=== PATIENT | female | born 1985 ===

== ENCOUNTER 2020-08-16 08:59 | Outpatient (REF) | payer OTHER, SELFPAY ==
[2020-08-16 11:29] LABS: MANUAL DIFF FLAG NO
[2020-08-16 11:39] LABS: Basophils Percent Auto 0.3 % (0-2); Eosinophils Absolute Auto 0.2 X10*3/uL (0.0-0.4); Eosinophils Percent Auto 2.4 % (0-4); Hemoglobin 13.8 g/dl (12.0-16.0); Imm Gran Abs Auto 0.08 X10*3/uL (0.00-0.03); Imm Gran Pct Auto 0.9 % (0.0-0.4); Lymphocytes Absolute Auto 1.8 X10*3/uL (1.2-4.9); Lymphocytes Percent Auto 20.5 % (20-40); Mean Corpuscular HGB Conc 33.7 g/dl (31.0-35.0); Mean Corpuscular Hemoglobin 31.9 pg (27.0-33.0); Mean Corpuscular Volume 94.9 fL (80-98); Mean Platelet Volume 12.1 fL (9.4-12.3); Monocytes Absolute Auto 0.5 X10*3/uL (0.1-1.2); Monocytes Percent Auto 5.3 % (2-11); Neutrophils Absolute Auto 6.3 X10*3/uL (2.0-8.3); Neutrophils Percent Auto 70.6 % (45-73); Platelet Count 240 X10*3/uL (160-400); Red Blood Count 4.32 X10*6/uL (4.20-5.50); White Blood Count 8.9 X10*3/uL (4.8-10.8)
[2020-08-16 11:55] LABS: Anion Gap 12 (12-20); Blood Urea Nitrogen 10 mg/dL (9-16); Calcium 9.3 mg/dL (8.4-10.2); Carbon Dioxide 28 mmol/L (22-29); Chloride 101 mmol/L (96-108); Cholesterol 184 mg/dL; Estimated Glomerular Filt Rate > 60; Glucose Fasting 84 mg/dL (60-99); HDL Cholesterol 34 mg/dL; LDL Cholesterol Calculated 105 mg/dl; Potassium 4.1 mmol/l (3.3-5.1); Sodium 137 mmol/L (135-145); Triglycerides 228 mg/dL
[2020-08-16 12:06] LABS: TSH reflex Free T4 0.78 mIU/mL (0.32-4.0)
== END 2020-08-16 09:00 | disposition home or self-care (01) ==
LOC: HO.HMGCLDS 08:59
PROVIDERS: PCP Internal Medicine; Visit Provider Internal Medicine
DX: Z00.01 Encounter for general adult medical examination with abnormal findings (principal); E66.09 Other obesity due to excess calories; K58.2 Mixed irritable bowel syndrome; Z68.33 Body mass index [BMI] 33.0-33.9, adult
CPT/HCPCS: 36415; 80048; 80061; 84443; 85025

== ENCOUNTER 2020-12-21 09:12 | Outpatient (REF) | payer OTHER, SELFPAY ==
[2020-12-21 14:52] LABS: CT PCR NOT DETECTED (Not Detect.); NG PCR NOT DETECTED (Not Detect.)
[2020-12-22 08:35] LABS: HIV AB/AG Nonreactive (Nonreactive); HIV Num 1 0.05 S/CO (0.00-0.99)
[2020-12-22 08:47] LABS: Syphilis Screen Nonreactive (Nonreactive)
[2020-12-22 09:00] LABS: HBc Num1 0.03 S/CO (0.00-0.79); Hepatitis B Core Antibody Nonreactive (Nonreactive); ~HepC Num1 0.17 S/CO (0.00-0.79); ~Hepatitis C Antibody Nonreactive (Nonreactive)
[2020-12-22 09:23] LABS: BV Int Neg Control Negative (Negative); BV Int Pos Control Positive (Positive)
== END 2020-12-21 09:13 | disposition home or self-care (01) ==
LOC: HO.LAB 09:12
PROVIDERS: PCP Internal Medicine; Visit Provider Advanced Practice Midwife
DX: Z32.02 Encounter for pregnancy test, result negative (principal); Z20.2 Contact with and (suspected) exposure to infections with a predominantly sexual mode of transmission; F17.200 Nicotine dependence, unspecified, uncomplicated
CPT/HCPCS: 36415; 81025; 86704; 86780; 86803; 87389; 87480; 87491; 87510; 87591; 87660; 99202

== ENCOUNTER → 2021-01-14 11:10 | Outpatient (BNVA) | payer OTHER, SELFPAY | PROVIDERS: PCP Internal Medicine; Visit Provider Advanced Practice Midwife | DX: Z30.42 Encounter for surveillance of injectable contraceptive (principal) | CPT/HCPCS: 96372; 99211; J1050 ==

== ENCOUNTER 2021-02-15 12:22 | Outpatient (REF) | payer OTHER, SELFPAY ==
[2021-02-15 13:49] LABS: Rheumatoid Factor < 15.0 IU/mL (<15.0)
[2021-02-15 14:09] LABS: Erythrocyte Sedimentation Rate 9 MM/HR (0-20)
[2021-02-16 10:57] LABS: Complement C3 134 mg/dL (83-193)
[2021-02-16 13:46] LABS: Lyme Abs Screen <0.90 index
[2021-02-17 13:32] LABS: Anti Nuclear Antibody Screen NEGATIVE (NEGATIVE)
[2021-02-17 13:57] LABS: Antibody to SS-A Antigen <1.0 NEG AI (<1.0 NEG); Antibody to SS-B Antigen <1.0 NEG AI (<1.0 NEG)
[2021-02-17 14:21] LABS: IgA 114 mg/dL (47-310); IgG 934 mg/dL (600-1640); IgM 131 mg/dL (50-300)
[2021-02-23 00:36] LABS: DNAds, Crithidia Antibody Negative (Negative)
== END 2021-02-15 12:23 | disposition home or self-care (01) ==
LOC: HO.LAB 12:22
PROVIDERS: PCP Internal Medicine; Visit Provider Psychiatry & Neurology Neurology
DX: M79.7 Fibromyalgia (principal)
CPT/HCPCS: 36415; 82784; 85652; 86038; 86039; 86160; 86235; 86255; 86334; 86431; 86617; 86618

== ENCOUNTER → 2021-04-01 10:49 | Outpatient (BNVA) | payer OTHER, SELFPAY | PROVIDERS: Visit Provider Advanced Practice Midwife | DX: Z30.42 Encounter for surveillance of injectable contraceptive (principal) | CPT/HCPCS: 96372; 99211 ==

== ENCOUNTER 2021-09-27 10:17 | Outpatient (REF) | payer OTHER, SELFPAY | END 2021-09-27 10:18 | disposition home or self-care (01) | LOC: HO.HMGCLDS 10:17 | PROVIDERS: PCP Internal Medicine; Visit Provider Internal Medicine | DX: Z20.822 Contact with and (suspected) exposure to COVID-19 (principal) | CPT/HCPCS: C9803; U0003; U0005 ==

== ENCOUNTER → 2021-12-30 12:47 | Outpatient (BNVA) | payer OTHER, SELFPAY | PROVIDERS: PCP Internal Medicine; Visit Provider Advanced Practice Midwife | DX: Z30.42 Encounter for surveillance of injectable contraceptive (principal) | CPT/HCPCS: 96372; 99211 ==

== ENCOUNTER 2022-04-28 14:51 | Outpatient (REF) | payer OTHER, SELFPAY ==
[2022-04-28 18:03] LABS: CT PCR NOT DETECTED (Not Detect.); NG PCR NOT DETECTED (Not Detect.)
[2022-04-29 11:47] LABS: BV Int Neg Control Negative (Negative); BV Int Pos Control Positive (Positive)
[2022-05-04 14:32] LABS: HPV mRNA E6/E7 rflx Not Detected (Not Detected)
== END 2022-04-28 14:52 | disposition home or self-care (01) ==
LOC: HO.LAB 14:51
PROVIDERS: Visit Provider Advanced Practice Midwife
DX: Z12.4 Encounter for screening for malignant neoplasm of cervix (principal); Z11.3 Encounter for screening for infections with a predominantly sexual mode of transmission; Z11.51 Encounter for screening for human papillomavirus (HPV); Z20.2 Contact with and (suspected) exposure to infections with a predominantly sexual mode of transmission
CPT/HCPCS: 87480; 87491; 87510; 87591; 87624; 87660; 88142

== ENCOUNTER 2022-07-17 16:13 | Outpatient (REF) | payer OTHER, SELFPAY ==
[2022-07-18 02:24] LABS: CT PCR NOT DETECTED (Not Detect.); NG PCR NOT DETECTED (Not Detect.)
[2022-07-18 08:45] LABS: HBc Num1 0.07 S/CO (0.00-0.79); HIV AB/AG Nonreactive (Nonreactive); HIV Num 1 0.09 S/CO (0.00-0.99); Hepatitis B Core Antibody Nonreactive (Nonreactive); ~HepC Num1 0.08 S/CO (0.00-0.79); ~Hepatitis C Antibody Nonreactive (Nonreactive)
[2022-07-19 09:20] LABS: BV Int Neg Control Negative (Negative); BV Int Pos Control Positive (Positive)
== END 2022-07-17 16:14 | disposition home or self-care (01) ==
LOC: HO.LNP 16:13
PROVIDERS: Visit Provider Advanced Practice Midwife
DX: Z11.4 Encounter for screening for human immunodeficiency virus [HIV] (principal); Z11.3 Encounter for screening for infections with a predominantly sexual mode of transmission; N89.8 Other specified noninflammatory disorders of vagina; Z20.2 Contact with and (suspected) exposure to infections with a predominantly sexual mode of transmission
CPT/HCPCS: 86704; 86803; 87389; 87480; 87491; 87510; 87591; 87660; 99212

== ENCOUNTER 2022-07-17 16:20 | Outpatient (REF) | payer OTHER, SELFPAY | END 2022-07-17 16:21 | disposition home or self-care (01) | LOC: HO.LAB 16:20 | PROVIDERS: Visit Provider Advanced Practice Midwife | DX: Z13.89 Encounter for screening for other disorder (principal) ==

== ENCOUNTER 2023-01-10 08:05 | Outpatient (REF) | payer OTHER, SELFPAY ==
[2023-01-10 15:08] LABS: CT PCR NOT DETECTED (Not Detect.); NG PCR NOT DETECTED (Not Detect.)
[2023-01-11 09:17] LABS: BV Int Neg Control Negative (Negative); BV Int Pos Control Positive (Positive)
== END 2023-01-10 08:06 | disposition home or self-care (01) ==
LOC: HO.LAB 08:05
PROVIDERS: Visit Provider Advanced Practice Midwife
DX: N89.8 Other specified noninflammatory disorders of vagina (principal); N92.6 Irregular menstruation, unspecified; Z20.2 Contact with and (suspected) exposure to infections with a predominantly sexual mode of transmission
CPT/HCPCS: 0353U; 81025; 87480; 87510; 87660; 99212

== ENCOUNTER 2023-01-10 08:28 | Outpatient (REF) | payer OTHER, SELFPAY | END 2023-01-10 08:29 | disposition home or self-care (01) | LOC: HO.LNP 08:28 | PROVIDERS: Visit Provider Advanced Practice Midwife | DX: Z13.89 Encounter for screening for other disorder (principal) ==

== ENCOUNTER 2023-10-23 10:54 | Outpatient (REF) | payer OTHER, SELFPAY ==
[2023-10-24 11:07] LABS: BV Int Neg Control Negative (Negative); BV Int Pos Control Positive (Positive)
[2023-10-27 06:43] LABS: HPV mRNA E6/E7 rflx Not Detected (Not Detected)
== END 2023-10-23 10:55 | disposition home or self-care (01) ==
LOC: HO.LAB 10:54
PROVIDERS: Visit Provider Advanced Practice Midwife
DX: Z01.419 Encounter for gynecological examination (general) (routine) without abnormal findings (principal); Z87.42 Personal history of other diseases of the female genital tract; Z20.2 Contact with and (suspected) exposure to infections with a predominantly sexual mode of transmission; Z79.899 Other long term (current) drug therapy
CPT/HCPCS: 87480; 87510; 87624; 87660; 88142; 99395

== ENCOUNTER 2023-10-23 10:54 | Outpatient (AMB) | payer OTHER, SELFPAY ==
--- NOTE | 2023-10-23 10:55 | A.OFFVIS_ITS ---
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 Required: No Information Interpreted: clinical only Slitter Service And Setter: Slitter Service And Setter Present Allergies musinex Allergy (Unknown, Uncoded 10/23/23 11:05) Unknown Medication List - Last Reconciled 10/23/23 by Marge Carlin CNM duloxetine 30 mg PO DAILY losartan-hydrochlorothiazide 50-12.5 mg 1 tab PO DAILY omeprazole 20 mg PO DAILY 90 days Is last menstrual period known: Yes Last menstrual period: 10/15/23 Post menopausal: No Patient : No Do you need a note to return to daycare/school/sports/work: No HPI SUPERVISOR ASSEMBLY annual exam HPI Details 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 Currently she is using condoms for contraception she has an appointment December 17 to get her tubes tied at [facility]. She preferred to come here for her regular structural test engineer visits because she knows us and is comfortable here she recently had an unplanned in [facility] the but they did not work and so she ended up needing a D&C at [facility] on the she said it was very traumatic and more difficult than a giving . She is very clear she does not want to have another baby and in addition her 18-year-old son surprised her with the report of an unplanned on . She is very disappointed in him because she had plans for him to finish school and not have an early in his life. They are adjusting to things but it is challenging. She is being very careful herself and we did discuss plan B she had a condom break. Also discussed signs and symptoms of fertility to be aware of to augment her efforts. She remembers her abnormal Pap from years ago and remembers that they needed to take a piece out of her cervix she does not remember the name of the procedure last Pap on record is in 2021. There has a Pap that was negative in 2015 however there was no HPV code testing with it I could find. [facility] Medical History Smoking Total body pain Arthrosis Dyspepsia Mixed irritable bowel syndrome Obesity Surgical History History of section Family History Father Diabetes mellitus Mother Diabetes mellitus Maternal Grandfather Unknown family medical history Maternal Grandmother HTN (hypertension) Paternal Grandfather Unknown family medical history Brother No problems noted. Brother No problems noted. Brother No problems noted. Brother No problems noted. Brother No problems noted. Sister No problems noted. Sister No problems noted. Sister No problems noted. Sister No problems noted. Sister No problems noted. Social History Alcohol intake: current Alcohol intake frequency: a few times a month Female Reproductive History Menstrual Age of Menarche: 11 Duration of menses: 3-5 days Date of last menstrual period: 10/15/23 control method: none Total pregnancies: 4 Full term: 4 Date of last pap smear: 05/02/22 (negative, 2015) History of abnormal pap smear: Yes (2009,abn.pap) Physical Exam Vital Signs: Last Vital Signs BP 132/72 10/23/23 11:06 BMI result Body Mass Index 34.3 Const General: healthy appearing, comfortable, no acute distress, well developed and alert Nutritional Appearance: average body habitus Orientation/consciousness: patient oriented x3 Limitations: no limitations HEENT Head: Yes normocephalic Neck Neck: Yes normal visual inspection Chest Chest palpation & inspection: normal inspection of the chest Breast/axilla inspection: normal inspection of the breasts and normal inspection of the axillae Breast/axilla palpation: normal palpation of the breasts and normal palpation of the axillae Resp Effort & Inspection: normal respiratory effort GI Inspection: Yes normal to inspection, No Abdominal wall edema and No distended Palpation (GI): Soft to palpation and nontender Other: Normal external exam vagina pink and moist cervix multiparous scarred from multiparity and possible preop past procedure. Unable to palpate uterus completely but nontender not enlarged adnexa nontender good tone with Kegel General: Yes bladder normal to palpation External Female Exam: normal external appearance and normal appearance of the urethra Speculum Exam - Vagina: normal appearance of the vagina, normal palpation and normal vaginal discharge Speculum Exam - Cervix: normal appearance of the cervix, normal palpation and nontender Bimanual exam- vagina & uterus: normal bimanual exam, normal palpation, uterine size normal, bladder normal to palpation, consistency normal, normal palpation, uterine mobility normal, uterine shape normal, No Cervical tenderness present, non-tender and no cervical motion tenderness Bimanual Exam- Adnexa, other: normal adnexae, no masses, normal and No adnexal tenderness Neuro General: patient oriented x3 Assessment & Plan Assessment & Plan (1) Hx of abnormal cervical Pap smear: Comment: ?2009-Pos hpv, had bx., pap 2016 neg, no hpv cotesting found, 04/28/2022 Pap is negative with negative HPV.; pap done 10/23/23. Code(s): Z87.42 - Personal history of other diseases of the female genital tract (2) Potential exposure to STD: Code(s): Z20.2 - Contact with and (suspected) exposure to infections with a predominantly sexual mode of transmission (3) Well woman exam with routine gynecological exam: Code(s): Z01.419 - Encounter for gynecological examination (general) (routine) without abnormal findings Plan -----Discussed in this visit the following: healthy balanced diet, regular and consistent exercise, getting recommended health screens, doing the best she can for her particular health concerns, kegel exercises, pap smear screening and followup recommendations, mammography screening and SBE, normal changes in cycles in her life stage--- . She sees her primary care provider when she needs to reviewed that she will start yearly mammograms at age 40 I wished her well with her tubal ligation in November. If this Pap is normal and negative with negative HPV code testing she would not need another 1 for 5 years. Discussed augmenting her plan for condoms along with tubal ligation fertility awareness and plan B should a condom break in the next 6 weeks or so before her tubes are tied. Discussed the challenges of family adjustments to new situations in quite some detail. RTC next year labs for STIs ordered at her request and she can go to the lab and get those done and she is on the portal.. Orders: Orders CT NG by PCR Today Z01.419 - Encounter for gynecological examination (general) (routine) without abnormal findings Pap Smear Today Z01.419 - Encounter for gynecological examination (general) (routine) without abnormal findings Hepatitis C Antibody Today Z01.419 - Encounter for gynecological examination (general) (routine) without abnormal findings, Z20.2 - Contact with and (suspected) exposure to infections with a predominantly sexual mode of transmission, Z87.42 - Personal history of other diseases of the female genital tract Syphilis Screen Today [id number] - Encounter for gynecological examination (general) (routine) without abnormal findings, Z20.2 - Contact with and (suspected) exposure to infections with a predominantly sexual mode of transmission, Z87.42 - Personal history of other diseases of the female genital tract Bacterial Vaginosis Panel Today Z20.2 - Contact with and (suspected) exposure to infections with a predominantly sexual mode of transmission Hepatitis B Surface Antigen Today Z - Encounter for gynecological examination (general) (routine) without abnormal findings, Z20.2 - Contact with and (suspected) exposure to infections with a predominantly sexual mode of transmission, Z87.42 - Personal history of other diseases of the female genital tract HIV Ab/Ag Today Z - Encounter for gynecological examination (general) (routine) without abnormal findings, Z20.2 - Contact with and (suspected) exposure to infections with a predominantly sexual mode of transmission, Z87.42 - Personal history of other diseases of the female genital tract Coding Level of Care Code Est Pt Prev Care 18-39y(79676) Diagnoses Hx of abnormal cervical Pap smear Z87.42 Potential exposure to STD Z20.2 Well woman exam with routine gynecological exam Z
[2023-10-23 11:06] VITALS: BP 132/72; BMI 34.3
== END 2023-10-23 11:54 | disposition home or self-care (01) ==
LOC: HO.HWSM 10:54
PROVIDERS: Visit Provider Advanced Practice Midwife
DX: Z01.419 Encounter for gynecological examination (general) (routine) without abnormal findings (principal); Z87.42 Personal history of other diseases of the female genital tract; Z20.2 Contact with and (suspected) exposure to infections with a predominantly sexual mode of transmission
CPT/HCPCS: 99395

== ENCOUNTER 2023-10-23 11:56 | Outpatient (REF) | payer OTHER, SELFPAY ==
[2023-10-23 14:50] LABS: Syphilis Screen Nonreactive (Nonreactive)
[2023-10-24 02:04] LABS: CT PCR NOT DETECTED (Not Detect.); NG PCR NOT DETECTED (Not Detect.)
[2023-10-24 09:13] LABS: HBsAGNum1 0.33 S/CO (0.00-0.99); HIV AB/AG Nonreactive (Nonreactive); HIV Num 1 0.06 S/CO (0.00-0.99); Hepatitis B Surface Antigen Negative (Negative); ~HepC Num1 0.08 S/CO (0.00-0.79); ~Hepatitis C Antibody Nonreactive (Nonreactive)
== END 2023-10-23 11:57 | disposition home or self-care (01) ==
LOC: HO.HHCL 11:56
PROVIDERS: Visit Provider Advanced Practice Midwife
DX: Z01.419 Encounter for gynecological examination (general) (routine) without abnormal findings (principal); Z87.42 Personal history of other diseases of the female genital tract; Z20.2 Contact with and (suspected) exposure to infections with a predominantly sexual mode of transmission
CPT/HCPCS: 0353U; 86780; 86803; 87340; 87389

== ENCOUNTER 2025-07-03 10:32 | Outpatient (AMB) | payer OTHER, SELFPAY ==
[2025-07-03 11:11] VITALS: BP 112/72; BMI 35.4
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
== END 2025-07-03 17:06 | disposition home or self-care (01) ==
PROVIDERS: Visit Provider Advanced Practice Midwife
DX: Z87.42 Personal history of other diseases of the female genital tract (principal); Z30.09 Encounter for other general counseling and advice on contraception; E66.9 Obesity, unspecified; M79.7 Fibromyalgia; I10 Essential (primary) hypertension
CPT/HCPCS: 99213

== ENCOUNTER → 2025-07-03 10:32 | Outpatient (BNVA) | payer OTHER, SELFPAY | PROVIDERS: Visit Provider Advanced Practice Midwife | DX: Z30.09 Encounter for other general counseling and advice on contraception (principal); Z87.42 Personal history of other diseases of the female genital tract; E66.9 Obesity, unspecified; I10 Essential (primary) hypertension; M79.7 Fibromyalgia | CPT/HCPCS: 99212 ==

== ENCOUNTER 2025-07-30 14:23 | Outpatient (REF) | payer OTHER, SELFPAY | END 2025-07-30 14:24 | disposition home or self-care (01) | LOC: HO.LNP 14:23 | PROVIDERS: Visit Provider Advanced Practice Midwife | DX: Z13.89 Encounter for screening for other disorder (principal) ==